=== PATIENT | female | born 1985 | race Caucasian/White ===

== ENCOUNTER 2023-03-16 10:47 | Outpatient (CLI) | payer OTHER, SELFPAY ==
[2023-03-16 11:13] LABS: Hemoglobin 14.1 g/dL (12.0-15.0); Mean Corpuscular HGB Conc 33.6 g/dl (32-36); Mean Corpuscular Hemoglobin 32.9 pg (26-34); Mean Corpuscular Volume 97.9 fl (80-100); Mean Platelet Volume 10.7 fl (7.4-10.4); Platelet Count Result 254 k/mm3 (150-375); Red Blood Count 4.29 M/mm3 (4.2-5.4); Red Cell Distribution Width 12.1 % (11.5-14.5); White Blood Count 5.3 K/mm3 (4.5-10.0)
[2023-03-16 11:32] LABS: Beta HCG Quantitative 164.11 mIU/ML
[2023-03-16 11:46] LABS: Thyroid Stimulating Hormone 0.819 uIU/mL (0.465-4.680)
== END 2023-03-16 10:48 | disposition home or self-care (01) ==
LOC: ANHLAB 10:49
PROVIDERS: PCP Obstetrics & Gynecology; Visit Provider Obstetrics & Gynecology
DX: N91.2 Amenorrhea, unspecified (principal)
CPT/HCPCS: 36415; 84146; 84443; 84702; 85027

== ENCOUNTER 2023-03-21 11:41 | Outpatient (CLI) | payer OTHER, SELFPAY ==
[2023-03-21 12:34] LABS: Beta HCG Quantitative 66.23 mIU/ML
== END 2023-03-21 11:42 | disposition home or self-care (01) ==
LOC: ANHLAB 11:42
PROVIDERS: PCP Obstetrics & Gynecology; Visit Provider Obstetrics & Gynecology
DX: O20.0 Threatened abortion (principal)
CPT/HCPCS: 36415; 84702

== ENCOUNTER 2023-08-22 16:04 | Outpatient (CLI) | payer OTHER, SELFPAY ==
[2023-08-22 17:41] LABS: Basophils Absolute Auto 0.1 K/mm3 (0.0-0.1); Basophils Percent Auto 1.2 % (0.2-1.2); Eosinophils Absolute Auto 0.6 K/mm3 (0-0.3); Eosinophils Percent Auto 8.1 % (0-4.4); Hematocrit 37.8 % (37.0-47.0); Hemoglobin 12.6 g/dL (12.0-15.0); Immature Granulocyte Absolute 0.01 K/mm3 (0.00-0.031); Immature Granulocyte Percent A 0.1 % (0-0.5); Lymphocytes Absolute Auto 1.92 K/mm3 (0.9-3.2); Mean Corpuscular HGB Conc 33.3 g/dl (32-36); Mean Corpuscular Hemoglobin 32.3 pg (26-34); Mean Corpuscular Volume 96.9 fl (80-100); Mean Platelet Volume 12.1 fl (7.4-10.4); Monocytes Absolute Auto 0.5 K/mm3 (0.1-0.6); Monocytes Percent Auto 6.4 % (2.6-8.5); Neutrophils Absolute Auto 4.6 K/mm3 (1.3-6.7); Neutrophils Percent Auto 59.2 % (45.5-73.1); Platelet Count Result 222 k/mm3 (150-375); Red Cell Distribution Width 12.3 % (11.5-14.5); White Blood Count 7.7 K/mm3 (4.5-10.0)
[2023-08-22 18:27] LABS: HIV 1/2 Ab P24 Ag Result Negative (Negative)
[2023-08-22 18:35] LABS: Rubella IgG Antibody 8.9 IU/ML
[2023-08-22 19:58] LABS: Hepatitis B Surface Anti Res Indeterminate
[2023-08-23 13:24] LABS: Rapid Plasma Reagin Non-Reactive (NonReactive)
[2023-08-24 17:13] LABS: CMV IgG Antibody <0.60 U/mL (<0.60)
== END 2023-08-22 16:05 | disposition home or self-care (01) ==
PROVIDERS: PCP Obstetrics & Gynecology; Visit Provider Obstetrics & Gynecology
DX: N91.2 Amenorrhea, unspecified (principal)
CPT/HCPCS: 36415; 84702; 85025; 86592; 86644; 86703; 86706; 86747; 86762; 86787; 86850; 86900; 86901; G0432

== ENCOUNTER 2024-04-02 13:10 | Outpatient (RCR) | payer OTHER, SELFPAY ==
[2024-03-31] VITALS (26 sets, daily range): BP systolic 130–144; BP diastolic 80–89; PULSE 80–100; O2SAT 100
--- NOTE | 2024-03-31 10:01 | PC.NURSE ---
This RN called and spoke with Dr. Shay regarding NST and BPs. MD ordered labs and urine sample- see orders. Would like pt to be kept on the monitor at this time. RN repeated orders back to confirm.
[2024-03-31 10:31] LABS: Lactate Dehydrogenase 236 U/L (120-246)
[2024-03-31 10:33] LABS: Alanine Aminotransferase 23 U/L (6-35); Albumin Level 3.1 g/dL (3.5-5.1); Alkaline Phosphatase 239 U/L (38-126); Anion Gap 5 mmol/L (4-12); Aspartate Amino Transferase 35 U/L (14-36); Bilirubin,Total 0.6 mg/dL (0.2-1.3); Blood Urea Nitrogen 12 mg/dL (7-17); Calcium 8.2 mg/dL (8.4-10.2); Carbon Dioxide 24 mmol/L (22-30); Chloride 102 mmol/L (98-107); Estimated Glomerular Filt Rate > 60; Glucose 91 mg/dL (65-110); Potassium 4.1 mmol/L (3.4-5.0); Sodium 131 mmol/L (137-145); Uric Acid 6.7 mg/dL (2.5-7.5)
[2024-03-31 10:47] LABS: Basophils Absolute Auto 0.1 K/mm3 (0.0-0.1); Basophils Percent Auto 0.7 % (0.2-1.2); Eosinophils Absolute Auto 0.2 K/mm3 (0-0.3); Eosinophils Percent Auto 2.3 % (0-4.4); Hematocrit 29.9 % (37.0-47.0); Hemoglobin 9.6 g/dL (12.0-15.0); Immature Granulocyte Absolute 0.07 K/mm3 (0.00-0.031); Lymphocytes Absolute Auto 1.05 K/mm3 (0.9-3.2); Lymphocytes Percent Auto 14.9 % (18.3-44.2); Mean Corpuscular HGB Conc 32.1 g/dl (32-36); Mean Corpuscular Hemoglobin 29.9 pg (26-34); Mean Corpuscular Volume 93.1 fl (80-100); Mean Platelet Volume 12.6 fl (7.4-10.4); Monocytes Absolute Auto 0.5 K/mm3 (0.1-0.6); Monocytes Percent Auto 6.8 % (2.6-8.5); Neutrophils Absolute Auto 5.3 K/mm3 (1.3-6.7); Neutrophils Percent Auto 74.3 % (45.5-73.1); Platelet Count Result 187 k/mm3 (150-375); Red Blood Count 3.21 M/mm3 (4.2-5.4); Red Cell Distribution Width 12.4 % (11.5-14.5); White Blood Count 7.1 K/mm3 (4.5-10.0)
[2024-03-31 11:10] LABS: Appearance Urine Clear (Clear); Bacteria Urine 1+ /hpf; Bilirubin Urine Negative (Negative); Blood Urine Negative (Negative); Color Urine Yellow (Yellow); Glucose Urine UA Negative (Negative); Ketones Urine Negative (Negative); Leukocyte Esterase Ur 1+ LEU/UL (Negative); Nitrate Urine Negative (Negative); Non Pathogenic Casts 0-2; Protein Urine 1+ mg/dL (Negative); RBC Urine 0-2 /hpf (0-2); Specific Grav Ur 1.017 (1.001-1.035); Squamous Epithelial Cell Urine Occasional /hpf (Few); Urobilinogen Urine 0.2 mg/dL (<2.0)
[2024-03-31 11:15] LABS: Add Urine Microscopic? YES
[2024-03-31 11:16] LABS: Creatinine Urine 95.9 mg/dL; Total Protein Urine Random 23 mg/dL; Ur Ttl Prot Creatinine Ratio 0.24 mg/mg (0-0.20)
--- NOTE | 2024-03-31 11:23 | PC.NURSE ---
This RN called and spoke with Dr. Shay regarding lab results and recent FHT and BPs. MD orders to discharge patient. States she would like to see patient back on Tuesday for another NST with a BPP and BP check. RN repeated orders back to confirm. No further orders given at this time.
[2024-04-02 13:43] VITALS: BP 138/86; PULSE 84
== END 2024-04-30 08:16 | disposition home or self-care (01) ==
LOC: ANHOBOP 13:10
PROVIDERS: Obstetrics & Gynecology; PCP Obstetrics & Gynecology; Visit Provider Obstetrics & Gynecology
DX: O16.3 Unspecified maternal hypertension, third trimester (principal); Z3A.37 37 weeks gestation of pregnancy
CPT/HCPCS: 36415; 59025; 80053; 81001; 82570; 83615; 84156; 84550; 85025; 87086

== ENCOUNTER 2024-04-05 09:59 | Inpatient (IN) | payer OTHER, SELFPAY ==
[2024-04-05] VITALS (27 sets, daily range): BP systolic 112–144; BP diastolic 64–84; PULSE 52–84; RESP 16–19; TEMP 35.8–36.4; O2SAT 94–100; BMI 34.4
--- NOTE | 2024-04-05 09:59 | PM.IMHP ---
H&P: HPI History of Present Illness Date/Time: 04/05/24 09:59 38-year-old female 3 para 1011 at38+ weeks gestation presents for repeat delivery. complicated by advanced maternal age for which she did see genetic counseling, also COVID-19 during this for which she has had NSTs and growth scans which have all been reassuring. Over the past 2 weeks she has had elevated blood pressures in the office and in house, therefore her scheduled delivery at 39 weeks has been moved upto38+ weeks. Though she has had elevated pressures she has not had any significant headaches or visual changes, though swelling has been issue. Chief Complaint: Review of Systems Review of Systems: All systems reviewed & are unremarkable except as noted in HPI and below PMFSH Past Medical History Medical History Threatened Surgical History Surgical History Delivery by section (05/02/08) History of gynecological procedure (06/19/20) 2015 mirena iud insertion /mirena iud removal Family History Family History Mother Heart abnormality Sibling Heart abnormality Social History Social History Smoking status: Never smoker Alcohol intake: never Substance use: never Substance use type: does not use Living arrangements: other Additional living arrangements comments: single Occupation/Education: occupation 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 Gender identity (if verbalized by the patient): Female Sexual Orientation (if Verbalized by the Patient): Straight or Heterosexual Spiritual care concerns: No Meds Home Medications and Allergies Home Medications Medication Instructions Recorded Confirmed Type vitamins-iron fumarate 65 1 tablet PO DAILY 09/12/23 04/04/24 History mg iron-folic acid 1 mg tablet aspirin 81 mg tablet,delayed 81 mg PO DAILY 10/21/23 04/04/24 History release (Adult Low Dose Aspirin) Allergies Allergy/AdvReac Type Severity Reaction Status Date / Time No Known Allergies Allergy Verified 04/04/24 14:17 Exam Resp: Effort & Inspection: normal respiratory effort Auscultation: clear to auscultation bilaterally Cardio: Rate: regular rate Rhythm: regular rhythm GI: Inspection: normal to inspection Auscultation: normal bowel sounds : Bimanual exam- vagina & uterus: enlarged (Fundal height 40cm, heart tone 140) Assessment and Plan Assessment and plan (1) 38 weeks gestation of : Code(s): Z3A.38 - 38 weeks gestation of Status: Acute (2) Gestational hypertension: Code(s): O13.9 - Gestational [-induced] hypertension without significant proteinuria, unspecified trimester Status: Acute (3) Delivery by section: Onset Date: 05/02/08 Status: Acute (4) Advanced maternal age (AMA) in : Status: Acute Plan Proceed with repeat delivery
--- NOTE | 2024-04-05 10:05 | WPDHPUPDATE1 ---
History and Physical Update Update Date/Time: 04/05/24 10:05 History and Physical has been reviewed, including an updated exam of the patient. There are NO changes in the patient's condition. Risks, benefits, and alternatives have been discussed and questions answered. Patient agrees to proceed with procedure.
[2024-04-05] MEDS: ACETAMINOPHEN 500 MG TABLET 1000 MG PO (10:31)
[2024-04-05] MEDS: LACTATED RINGERS 1,000 ML 125 ML IV CONT ×2 (10:48→14:10)
[2024-04-05 10:54] LABS: Basophils Percent Auto 0.4 % (0.2-1.2); Eosinophils Absolute Auto 0.2 K/mm3 (0-0.3); Eosinophils Percent Auto 1.9 % (0-4.4); Hematocrit 31.4 % (37.0-47.0); Immature Granulocyte Absolute 0.12 K/mm3 (0.00-0.031); Immature Granulocyte Percent A 1.3 % (0-0.5); Immature Platelet Fraction Pct 21.5 % (0.9-11.2); Lymphocytes Absolute Auto 1.03 K/mm3 (0.9-3.2); Lymphocytes Percent Auto 11.1 % (18.3-44.2); Mean Corpuscular HGB Conc 31.8 g/dl (32-36); Mean Corpuscular Hemoglobin 29.3 pg (26-34); Mean Corpuscular Volume 92.1 fl (80-100); Mean Platelet Volume 13.1 fl (7.4-10.4); Monocytes Absolute Auto 0.6 K/mm3 (0.1-0.6); Monocytes Percent Auto 5.9 % (2.6-8.5); Neutrophils Absolute Auto 7.4 K/mm3 (1.3-6.7); Neutrophils Percent Auto 79.4 % (45.5-73.1); Platelet Count Result 190 k/mm3 (150-375); Red Blood Count 3.41 M/mm3 (4.2-5.4); Red Cell Distribution Width 12.4 % (11.5-14.5); White Blood Count 9.3 K/mm3 (4.5-10.0)
[2024-04-05 11:04] LABS: Alanine Aminotransferase 30 U/L (6-35); Albumin Level 3.1 g/dL (3.5-5.1); Alkaline Phosphatase 292 U/L (38-126); Anion Gap 6 mmol/L (4-12); Aspartate Amino Transferase 37 U/L (14-36); Bilirubin,Total 0.6 mg/dL (0.2-1.3); Blood Urea Nitrogen 9 mg/dL (7-17); Calcium 8.5 mg/dL (8.4-10.2); Carbon Dioxide 22 mmol/L (22-30); Chloride 103 mmol/L (98-107); Estimated CRCL calculation 105 ml/min; Estimated Glomerular Filt Rate > 60; Glucose 78 mg/dL (65-110); Potassium 3.8 mmol/L (3.4-5.0); Sodium 131 mmol/L (137-145)
[2024-04-05 11:44] LABS: HIV 1/2 Ab P24 Ag Result Negative (Negative)
--- NOTE | 2024-04-05 14:03 | WPDANESEPPF ---
Anes - Initial Pre Proc Eval Procedure: Operation Date: 04/05/24 12:00 Proposed Procedures p Repeat Section - Nima Carter MD Date/Time: 04/05/24 14:03 Surgeon: Nima Carter MD Pre Op Diagnosis: C/S Patient Data Age: 38 Gender: F Height: 1.63 m Weight: 91 kg Last Vital Signs Pulse 84 04/05/24 10:56 BP 144/82 H 04/05/24 10:56 O2 Del Method Room Air 04/05/24 10:34 Allergies Allergy/AdvReac Type Severity Reaction Status Date / Time No Known Allergies Allergy Verified 04/04/24 14:17 Home Medications Medication Instructions Recorded Confirmed Type vitamins-iron fumarate 65 1 tablet PO DAILY 09/12/23 04/04/24 History mg iron-folic acid 1 mg tablet aspirin 81 mg tablet,delayed 81 mg PO DAILY 10/21/23 04/04/24 History release (Adult Low Dose Aspirin) Laboratory Tests 04/05/24 10:20 WBC 9.3 K/mm3 (4.5-10.0) RBC 3.41 L M/mm3 (4.2-5.4) Hgb 10.0 L g/dL (12.0-15.0) Hct 31.4 L % (37.0-47.0) MCV 92.1 fl (80-100) MCH 29.3 pg (26-34) MCHC 31.8 L g/dl (32-36) RDW 12.4 % (11.5-14.5) Plt Count 190 k/mm3 (150-375) MPV 13.1 H fl (7.4-10.4) Immature Gran % (Auto) 1.3 H % (0-0.5) Neut % (Auto) 79.4 H % (45.5-73.1) Lymph % (Auto) 11.1 L % (18.3-44.2) [place] % (Auto) 5.9 % (2.6-8.5) Eos % (Auto) 1.9 % (0-4.4) Baso % (Auto) 0.4 % (0.2-1.2) Lymph # (Auto) 1.03 K/mm3 (0.9-3.2) [place] # (Auto) 0.6 K/mm3 (0.1-0.6) Eos # (Auto) 0.2 K/mm3 (0-0.3) Baso # (Auto) 0.0 K/mm3 (0.0-0.1) Abs Immat Gran (auto) 0.12 H K/mm3 (0.00-0.031) Absolute Neuts (auto) 7.4 H K/mm3 (1.3-6.7) Absolute Nucleated RBC 0.000 K/mm3 (0.0-0.012) Nucleated RBC % 0.0 % (0.0-0.2) % Immature Plt Fraction 21.5 H % (0.9-11.2) Sodium 131 L mmol/L (137-145) Potassium 3.8 mmol/L (3.4-5.0) Chloride 103 mmol/L (98-107) Carbon Dioxide 22 mmol/L (22-30) Anion Gap 6 mmol/L (4-12) BUN 9 mg/dL (7-17) Creatinine 0.70 mg/dL (0.7-1.0) Estim Creat Clear Calc 105 ml/min Estimated GFR > 60 (59 - ) Glucose 78 mg/dL (65-110) Calcium 8.5 mg/dL (8.4-10.2) Total Bilirubin 0.6 mg/dL (0.2-1.3) AST 37 H U/L (14-36) ALT 30 U/L (6-35) Alkaline Phosphatase 292 H U/L (38-126) Total Protein 6.0 L g/dL (6.3-8.2) Albumin 3.1 L g/dL (3.5-5.1) RPR Pending HIV 1&2 Ab/P24 Ag 4thGn Negative (Negative) Blood Type AB Positive Antibody Screen Negative Patient hx anesthesia problems: other (Pt reports that w prev emergency C section, she got high level, needed BMV, ultimately needed a blood patch several days later. ) Family hx anesthesia problems: none Results Review: All pre-operative results and documents have been reviewed as part of the pre-operative evaluation. FOR[facility] Past Medical History Medical History Threatened Surgical History Surgical History Delivery by section (05/02/08) History of gynecological procedure (06/19/20) 2015 mirena iud insertion /mirena iud removal Family History Family History Mother Heart abnormality Sibling Heart abnormality Social History Social History Smoking status: Former smoker Tobacco type: cigarettes and e-cigarettes/vaping Smoking end date: 09/14/23 Alcohol intake: never Substance use: never Substance use type: does not use Do You Feel Safe in your Home?: Yes Lack of Transportation: No Lack of Food: Never True Current Housing: I Have Housing Concerned About Future Housing: No Difficulty Paying Gas/Electric Bills: No Difficulty Paying for Meds: No C
[2024-04-05] MEDS: FAMOTIDINE 20 MG/2 ML VIAL IV PUSH (14:10)
[2024-04-05] MEDS: ceFAZolin 2 GM/D5W 50 ML 2 GM/50 ML BAG IVPB (14:13)
--- NOTE | 2024-04-05 15:10 | W.PM.OBCSD ---
OB - Delivery Note Procedure Delivery date: 04/05/24 Pre-op diagnosis: Gestational Hypertension and Previous Delivery Post-op Diagnosis: Same Procedure Performed: Repeat Secondary branch: low cervical, transverse Surgeon: Nima Carter MD Anesthesia type: Spinal Description of Procedure/Findings: Patient prepped draped usual manner for this procedure. Pfannenstiel incision was made and carried down to the fascia. Which was then extended bilaterally this skin incision, then superiorly and inferiorly dissected away from the rectus muscles. Peritoneum was readily entered the bladder flap was developed once the peritoneum had been entered. Uterus was scored low transverse manner and extended bilaterally the length of the lower segment. Vertex was delivered without difficulty suction of naso and oropharynx, cord clamped cut and baby was passed off the operative field. The uterus was then exteriorized and placenta was manually removed. Uterus was then it rendered hemostatic and approximated using 0 Monocryl in running interlocking manner with good approximation hemostasis noted. Uterus was returned to the abdomen and the uterine incision was again inspected noted hemostatic. All subfascial tissue was no be hemostatic and the fascia was approximated 0 Vicryl suture. The subcutaneous tissue was approximated using 0 plain, and carlene then used to approximate the skin edges. Specimen: Yes Estimated Blood Loss: 555 Drains: Yes (Marte catheter) Packing: No Pathology: Yes Complications: No immediate complications Condition: Stable Disposition: PACU [place] Baby Weeks of gestation at delivery: 38 Infant gender: Male presentation: vertex
[2024-04-05] MEDS: ONDANSETRON INJ 4 MG/2 ML VIAL IV PUSH (16:10)
[2024-04-05] MEDS: OXYTOCIN 30 UNITS/NS 500 ML 30 UNITS/500 ML BAG 125 UNITS IV CONT (16:45)
[2024-04-05 18:06] LABS: Rapid Plasma Reagin Non-Reactive (NonReactive)
--- NOTE | 2024-04-05 18:11 | OBPPTRN ---
Patient transferred to post room #281 via stretcher. Support person- spouse present. Oriented to unit, room, information board, rooming in, admission packet and security measures. Patient verbalizes understanding.
--- NOTE | 2024-04-05 18:54 | PC.NURSE ---
1854- Educated patient on need to pump every 2-3 hours when from in order to promote milk supply, provided patient with pump at this time and patient declined pumping and said she would call out for assistance if she decides to pump.
[2024-04-05] MEDS: DOCUSATE SODIUM 100 MG CAPSULE PO (21:28)
[2024-04-05] MEDS: ACETAMINOPHEN 325 MG TABLET 650 MG PO (21:28)
[2024-04-05] MEDS: KETOROLAC 15 MG/ML VIAL (*BKC) IV PUSH (21:28)
[2024-04-05] MEDS: SIMETHICONE 80 MG TAB.CHEW PO (21:29)
[2024-04-06 04:32] VITALS: BP 125/78; PULSE 101; RESP 18; TEMP 36.8; O2SAT 99
[2024-04-06 05:28] LABS: Basophils Absolute Auto 0.1 K/mm3 (0.0-0.1); Basophils Percent Auto 0.4 % (0.2-1.2); Eosinophils Absolute Auto 0.2 K/mm3 (0-0.3); Eosinophils Percent Auto 1.4 % (0-4.4); Hematocrit 29.3 % (37.0-47.0); Immature Granulocyte Absolute 0.07 K/mm3 (0.00-0.031); Immature Granulocyte Percent A 0.6 % (0-0.5); Immature Platelet Fraction Pct 21.9 % (0.9-11.2); Lymphocytes Absolute Auto 0.69 K/mm3 (0.9-3.2); Lymphocytes Percent Auto 5.8 % (18.3-44.2); Mean Corpuscular HGB Conc 30.7 g/dl (32-36); Mean Corpuscular Hemoglobin 29.3 pg (26-34); Mean Corpuscular Volume 95.4 fl (80-100); Mean Platelet Volume 13.4 fl (7.4-10.4); Monocytes Absolute Auto 0.6 K/mm3 (0.1-0.6); Monocytes Percent Auto 4.9 % (2.6-8.5); Neutrophils Absolute Auto 10.3 K/mm3 (1.3-6.7); Neutrophils Percent Auto 86.9 % (45.5-73.1); Platelet Count Result 173 k/mm3 (150-375); Red Blood Count 3.07 M/mm3 (4.2-5.4); Red Cell Distribution Width 12.5 % (11.5-14.5); White Blood Count 11.9 K/mm3 (4.5-10.0)
[2024-04-06 07:50] VITALS: BP 139/82; PULSE 90; RESP 16; TEMP 37; O2SAT 97
[2024-04-06] MEDS: DEXTROSE 5%/0.45% SOD CHL 1,000 ML 125 ML IV CONT (08:00)
[2024-04-06] MEDS: POLYSACCHARIDE IRON COMPLEX 150 MG CAPSULE PO ×2 (08:14→16:52)
[2024-04-06] MEDS: MULTIVIT/MIN/PREN/FOL AC/IRON TABLET 1 TAB PO (08:14)
[2024-04-06] MEDS: DOCUSATE SODIUM 100 MG CAPSULE PO ×2 (08:15→16:52)
[2024-04-06] MEDS: SIMETHICONE 80 MG TAB.CHEW PO ×2 (08:15→16:52)
[2024-04-06] MEDS: ACETAMINOPHEN 325 MG TABLET 650 MG PO ×2 (08:15→16:52)
[2024-04-06] MEDS: KETOROLAC 15 MG/ML VIAL (*BKC) IV PUSH ×2 (08:16→16:52)
--- NOTE | 2024-04-06 10:43 | PC.NURSE ---
[id number] Introductions were made, then consulted with patient to assess needs related to . Mother led the conversation with her?plans to feed?her infant, the?experience so far with a history of 16 years ago. Encouraged understanding of the benefits of skin to skin (demonstrating unwrapping and placing upright on her chest), stimulating with massage touch, changing positions to encourage wakefulness, how to watch for early feeding cues, responsive feeding, feeding on demand (aiming for 8-12 times in 24 hours, about every 2-3 hours), milk production, hand expression, building/maintaining a milk supply, duration of feeding, signs of adequate intake/output, pumping and how to record on the feeding sheet. Mother works well with her infant with encouragement and education. Blood sugar was resulted at 71mg/dl and infant was given [id number] time to practice instincts of finding the breast getting familiar with the outside of mothers body and bonding for mother to learn responsive feeding. [id number] [phone] latched optimally to the right breast in laid-back position with minimal guidance. Education given to the mother of how to visualize the suckling (with good rocking jaw motion), swallows (dropping of the lower jaw) and how to listen for drinking at the breast (the ka sound) and demonstrated. Infant was able to maintain latch without pain to mother protecting the nipple with optimal positioning and latching. Discussed practicing instincts, baby-led and mother-led . Reviewed paced bottle feeding with parents if it is necessary to medically supplement. Reminded mother to pump if infant is not latching optimally removing milk or receiving a bottle of formula with handout provided. Encouraged mother to call for a pump flange fitting assessment. Parents voiced understanding of skin to skin, stimulating with massage touch, responsive feedings, hand expressed colostrum, talking to to encourage if it has been 2 -2.5 hours since the start of the last , to call if infant does not latch, or if there is discomfort with . Resources used for education were facilitated with the visual educational handouts/mom and baby guide. Inpatient/outpatient resources provided with business card, feeding sheet, name written on the communication board, and the mom/baby guide. Parents voiced understanding of information, demonstrated learning and will call if there is a request for assistance. Reported to the Primary RN infant is .
--- NOTE | 2024-04-06 12:40 | P.PNOB_ITS ---
OB - PN: Subj Subjective Date/time seen: 04/06/24 12:40 S: Pain well tolerated. The diet and ambulation without difficulty. O: VSS afebrile Abdomen: Positive bowel sounds soft, bandage in place Skin: Noted A: /postop day 1... Doing well. P: Routine postop care. Likely discharge home if no issues. OB - PN: Obj Data Labs 04/06/24 04:18 04/05/24 10:20 Labs: Laboratory Results - last 24 hr 04/05/24 04/06/24 10:20 04:18 WBC 11.9 H RBC 3.07 L Hgb 9.0 L Hct 29.3 L MCV 95.4 MCH 29.3 MCHC 30.7 L RDW 12.5 Plt Count 173 MPV 13.4 H Immature Gran % (Auto) 0.6 H Neut % (Auto) 86.9 H Lymph % (Auto) 5.8 L [place] % (Auto) 4.9 Eos % (Auto) 1.4 Baso % (Auto) 0.4 Lymph # (Auto) 0.69 L [place] # (Auto) 0.6 Eos # (Auto) 0.2 Baso # (Auto) 0.1 Abs Immat Gran (auto) 0.07 H Absolute Neuts (auto) 10.3 H Absolute Nucleated RBC 0.000 Nucleated RBC % 0.0 % Immature Plt Fraction 21.9 H RPR Non-reactive OB - PN A/P Time Spent With Patient Time: Total time spent is greater than 50% in coordination of care (as documented) at patient's floor/unit and/or counseling patient:
--- NOTE | 2024-04-06 12:41 | PM.OBDSVD ---
DS: Admitting Diagnosis Discharge Date April 07, 2024 Admitting Diagnosis DS: Discharge Diagnosis Discharge Diagnosis (1) , delivered: Code(s): O80 - Encounter for full-term uncomplicated delivery Status: Acute OB - DS: Summary OB Procedures : None OB Procedures Intrapartum: OB Procedures: : None Peripartum Data Procedures: Procedures Operation Date: 04/05/24 14:00 Actual Procedure Side Surgeon p Repeat Section Bilateral Nima Carter MD Time Spent with Patient Time attestation: Total time spent providing and/or coordinating discharge services: DS: Data Data Completed and Pending Pending studies at discharge: Pending at discharge 04/05/24 16:19 Surgical [PTH] Routine Labs on day of discharge: Labs from last 24 hours 04/06/24 04/05/24 04:18 10:20 WBC 11.9 H RBC 3.07 L Hgb 9.0 L Hct 29.3 L MCV 95.4 MCH 29.3 MCHC 30.7 L RDW 12.5 Plt Count 173 MPV 13.4 H Immature Gran % (Auto) 0.6 H Neut % (Auto) 86.9 H Lymph % (Auto) 5.8 L [place] % (Auto) 4.9 Eos % (Auto) 1.4 Baso % (Auto) 0.4 Lymph # (Auto) 0.69 L [place] # (Auto) 0.6 Eos # (Auto) 0.2 Baso # (Auto) 0.1 Abs Immat Gran (auto) 0.07 H Absolute Neuts (auto) 10.3 H Absolute Nucleated RBC 0.000 Nucleated RBC % 0.0 % Immature Plt Fraction 21.9 H RPR Non-reactive Discharge Plan Discharge Discharging Clinician: Nima Carter Patient Disposition: Home, Self-Care Activity: no straining, no driving and follow weight bearing status Diet: as tolerated Patient Instructions: Antibiotic Form Stand Alone Forms: General Discharge Information Follow-up/Referrals: Nima Carter MD [Physician] - 3 Weeks Discharge Medications: New hydrocodone-acetaminophen 5-325 mg Tablet 1 tablet PO Q3H PRN (Reason: Breakthrough Pain Rated 4-6) Qty: 20 0RF ibuprofen 600 mg Tablet 600 mg PO Q6H Qty: 30 0RF Continued vit-iron fum-folic ac 65 mg iron- 1 mg tablet 1 tablet PO DAILY Discontinued aspirin [Adult Low Dose Aspirin] 81 mg tablet,delayed release (DR/EC) 81 mg PO DAILY Date of admission: 04/05/24 09:59 Primary Care Provider: PHYSICIAN,DAM ATTENDANT Admitting Provider: Nima Carter Attending physician on admission: Nima Carter Condition: Stable
--- NOTE | 2024-04-06 13:01 | WPDANLDPN2 ---
Anes-Prog Note L&D Date/Time: 04/06/24 13:01 Comfortable throughout: section Neuraxial method: spinal Epidural/Spinal procedure site: clean & non-tender Neuro status: Neuro function grossly intact. Cardiovascular status: normal Respiratory status: normal Airway patency: baseline Mental status: baseline Post-Op hydration status: normal Vital Signs: Last Vital Signs Temp 98.6 F 04/06/24 07:50 Pulse 90 04/06/24 07:50 Resp 16 04/06/24 07:50 BP 139/82 04/06/24 07:50 Pulse Ox 97 04/06/24 07:50 O2 Del Method Room Air 04/05/24 17:15 Pain score (VAS): 0/10 I/O: Intake & Output 04/05/24 04/06/24 04/06/24 23:59 07:59 15:59 Intake Total 950 1100 Output Total 2083 1400 Balance -1133 -300 Post-procedural complaints: none Patient feedback: Patient satisfied with anesthetic care.
--- NOTE | 2024-04-06 13:01 | WPDANLDNPN2 ---
Anes-Prog Note L&D-Neuraxial Date/Time: 04/06/24 13:01 Neuraxial medications: intrathecal PF morphine Opiod-related complaints: none Patient feedback: Patient satisfied with post-operative pain management.
[2024-04-06 13:05] VITALS: BP 125/54; PULSE 79; RESP 16; TEMP 37.3; O2SAT 96
[2024-04-06 15:45] VITALS: BP 124/56; PULSE 71; RESP 18; TEMP 36.9; O2SAT 100
[2024-04-06] MEDS: HYDROcodone/acetaminophen (*CRX) 5-325 MG TABLET 1 TAB PO (22:45)
[2024-04-06] MEDS: IBUPROFEN 600 MG TABLET PO (22:45)
[2024-04-06 22:48] VITALS: BP 147/96; PULSE 105; RESP 18; TEMP 37.1; O2SAT 99
[2024-04-07 01:20] VITALS: BP 138/84; PULSE 95; O2SAT 97
[2024-04-07] MEDS: HYDROcodone/acetaminophen (*CRX) 5-325 MG TABLET 1 TAB PO (05:32)
[2024-04-07] MEDS: IBUPROFEN 600 MG TABLET PO ×4 (05:32→23:33)
[2024-04-07 05:34] VITALS: BP 135/83; PULSE 91; O2SAT 96
[2024-04-07] MEDS: POLYSACCHARIDE IRON COMPLEX 150 MG CAPSULE PO ×2 (08:26→17:30)
[2024-04-07] MEDS: DOCUSATE SODIUM 100 MG CAPSULE PO ×2 (08:27→17:30)
[2024-04-07] MEDS: MULTIVIT/MIN/PREN/FOL AC/IRON TABLET 1 TAB PO (08:27)
[2024-04-07] MEDS: SIMETHICONE 80 MG TAB.CHEW PO ×3 (08:27→17:30)
[2024-04-07 09:00] VITALS: BP 137/82; PULSE 82; RESP 16; TEMP 37.7; O2SAT 98
[2024-04-07] MEDS: ACETAMINOPHEN 325 MG TABLET 650 MG PO ×3 (11:44→23:33)
[2024-04-07] MEDS: LIDOCAINE 5% PATCH 1 PATCH TRANSDERM (11:46)
[2024-04-07 15:00] VITALS: BP 134/80; PULSE 81
[2024-04-07 20:00] VITALS: BP 137/90; PULSE 90; RESP 18; TEMP 36.8; O2SAT 99
[2024-04-08] VITALS (8 sets, daily range): BP systolic 136–145; BP diastolic 78–91; PULSE 68–99; RESP 16–18; TEMP 36.9–37.2; O2SAT 99–100
[2024-04-08] MEDS: ACETAMINOPHEN 325 MG TABLET 650 MG PO ×3 (05:23→17:15)
[2024-04-08] MEDS: IBUPROFEN 600 MG TABLET PO ×3 (05:23→17:14)
[2024-04-08] MEDS: SIMETHICONE 80 MG TAB.CHEW PO ×3 (08:39→17:14)
[2024-04-08] MEDS: DOCUSATE SODIUM 100 MG CAPSULE PO ×2 (08:40→17:15)
[2024-04-08] MEDS: POLYSACCHARIDE IRON COMPLEX 150 MG CAPSULE PO ×2 (08:40→17:15)
[2024-04-08] MEDS: MULTIVIT/MIN/PREN/FOL AC/IRON TABLET 1 TAB PO (08:40)
[2024-04-08] MEDS: LIDOCAINE 5% PATCH 1 PATCH TRANSDERM (13:07)
[2024-04-08] MEDS: LABETALOL HCL 100 MG TABLET PO (21:29)
[2024-04-09] VITALS (8 sets, daily range): BP systolic 124–143; BP diastolic 86–94; PULSE 88–101; RESP 16–18; TEMP 36.5–37.3; O2SAT 99–100
[2024-04-09] MEDS: ACETAMINOPHEN 325 MG TABLET 650 MG PO ×3 (05:54→17:03)
[2024-04-09] MEDS: IBUPROFEN 600 MG TABLET PO ×3 (05:55→17:05)
[2024-04-09] MEDS: MEASLES,MUMPS,RUBELLA VACCINE 0.5 ML VIAL SUB-Q (08:11)
[2024-04-09] MEDS: POLYSACCHARIDE IRON COMPLEX 150 MG CAPSULE PO ×2 (08:15→17:04)
[2024-04-09] MEDS: DOCUSATE SODIUM 100 MG CAPSULE PO ×2 (08:15→17:04)
[2024-04-09] MEDS: LABETALOL HCL 100 MG TABLET PO ×2 (08:15→21:09)
[2024-04-09] MEDS: MULTIVIT/MIN/PREN/FOL AC/IRON TABLET 1 TAB PO (08:15)
[2024-04-09] MEDS: SIMETHICONE 80 MG TAB.CHEW PO ×3 (08:16→17:05)
--- NOTE | 2024-04-09 16:33 | PC.NURSE ---
Patient instructed on viewing the discharge video Mother & Baby Care, The First Two Weeks . Patient was given the opportunity and encouraged to ask questions. Patient verbalized understanding of information shared and has been given the mother/baby guide for home reference.
[2024-04-10 08:25] VITALS: BP 134/89; PULSE 90; RESP 18; TEMP 36.7; O2SAT 100
== END 2024-04-09 21:30 | disposition home or self-care (01) | DRG 788 ==
LOC: ANHLDR 10:02 → ANHOB2 18:14
PROVIDERS: Admitting Provider Obstetrics & Gynecology; Visit Provider Obstetrics & Gynecology
PROC: 10D00Z1 Extraction of Products of Conception, Low, Open Approach (ICD-10-PCS; CPT 59514; principal; 2024-04-05 12:00)
DX: O34.211 Maternal care for low transverse scar from previous cesarean delivery (principal); Z37.0 Single live birth; Z3A.38 38 weeks gestation of pregnancy; O13.4 Gestational [pregnancy-induced] hypertension without significant proteinuria, complicating childbirth
CPT/HCPCS: 36415; 80053; 85025; 85055; 86592; 86703; 86850; 86900; 86901; 88307; 90710; A9270; G0432; J0690; J1885; J2274; J2405; J2590; J7120

== ENCOUNTER 2024-06-14 12:05 | Outpatient (CLI) | payer OTHER, SELFPAY ==
[2024-06-14 12:51] LABS: Beta HCG Quantitative < 2.39 mIU/ML
== END 2024-06-14 12:06 | disposition home or self-care (01) ==
PROVIDERS: Visit Provider Obstetrics & Gynecology
DX: Z30.9 Encounter for contraceptive management, unspecified (principal)
CPT/HCPCS: 36415; 84702